=== PATIENT | female | born 1980 | race Caucasian/White ===

== ENCOUNTER 2017-02-03 18:02 | Inpatient (IN) | payer OTHER ==
[~2017-02-03] VITALS: Ht 167.6 cm; Wt 64.3 kg
[2017-02-03] MEDS ORDERED: VIVI380I IM (18:12)
[2017-02-03] MEDS ORDERED: CLON-412 PO (18:12)
[2017-02-03] MEDS ORDERED: GABA-283 PO (18:12)
[2017-02-03 19:01] LABS: MEAN CORPUSCULAR HEMOGLOBIN 31.7 pg (27.0-33.0); MEAN CORPUSCULAR HGB CONC 34.6 g/dl (32.0-36.5); MEAN CORPUSCULAR VOLUME 91.6 fl (80.0-96.0); RED CELL DISTRIBUTION WIDTH 13.1 % (11.5-14.5); WHITE BLOOD COUNT 10.7 K/mm3 (4.0-10.0)
[2017-02-03 19:18] LABS: CONTROL LINE HCG INT CTR LINE PRESENT
[2017-02-03 19:25] LABS: METHADONE URINE NEGATIVE (NEGATIVE)
[2017-02-03 19:35] LABS: ALBUMIN 3.9 GM/DL (3.2-5.2); ALBUMIN/GLOBULIN RATIO 1.26 (1.00-1.93); ALKALINE PHOSPHATASE 70 U/L (45-117); ALT/SGPT 18 U/L (12-78); ANION GAP 7 MEQ/L (8-16); AST/SGOT 9 U/L (15-37); BILIRUBIN,DIRECT 0.1 MG/DL (0.0-0.2); BILIRUBIN,TOTAL 0.3 MG/DL (0.2-1.0); BLOOD UREA NITROGEN 9 MG/DL (7-18); CARBON DIOXIDE LEVEL 26 MEQ/L (21-32); CHLORIDE LEVEL 107 MEQ/L (98-107); CREATININE FOR GFR 0.82 MG/DL (0.55-1.02); GLOMERULAR FILTRATION RATE > 60.0 (>60); GLUCOSE, FASTING 95 MG/DL (70-105); POTASSIUM SERUM 4.3 MEQ/L (3.5-5.1); SODIUM LEVEL 140 MEQ/L (136-145)
[2017-02-03] MEDS ORDERED: GABA-282 PO (19:47)
[2017-02-03] MEDS ORDERED: traZODone 50 MG TAB PO PRN (20:15)
[2017-02-03] MEDS ORDERED: MOM 30ML SUSPENSION UDC PO PRN (20:15)
[2017-02-03] MEDS ORDERED: MAALOX 30 ML SUSP *UDC PO PRN (20:15)
[2017-02-03] MEDS ORDERED: ALPRAZolam 0.5 MG TAB PO ONE (20:30)
[2017-02-03 21:44] VITALS: BP 109/68
[2017-02-04 06:17] VITALS: BP 116/59
[2017-02-04] MEDS: VENLAFAXINE **XR** 37.5 MG CAPSULE PO SCH (09:24)
[2017-02-04] MEDS: NICOTINE 21MG/24HR 1 EA TRANSDERMAL TD SCH (09:25)
[2017-02-04 15:45] VITALS: BP 186/96
[2017-02-04 16:00] VITALS: BP 135/94
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
[2017-02-04] MEDS: ACETAMINOPHEN TAB 650MG DOSE (2X325MG) PO PRN (17:37)
[2017-02-04 18:00] VITALS: BP 132/79
[2017-02-04] MEDS: OLANZapine ORAL DISINTEGRATING TAB 5MG PO PRN ×2 (19:46→23:45)
[2017-02-04] MEDS: hydrOXYzine 50 MG TAB PO PRN (23:52)
[2017-02-05] MEDS: ACETAMINOPHEN TAB 650MG DOSE (2X325MG) PO PRN (06:30)
[2017-02-05 06:42] VITALS: BP 132/86
[2017-02-05] MEDS: VENLAFAXINE **XR** 37.5 MG CAPSULE PO SCH (09:10)
[2017-02-05] MEDS: NICOTINE 21MG/24HR 1 EA TRANSDERMAL TD SCH (09:11)
[2017-02-05 18:00] VITALS: BP 122/82
[2017-02-05] MEDS: hydrOXYzine 50 MG TAB PO PRN (22:03)
[2017-02-06 06:46] VITALS: BP 111/70
[2017-02-06] MEDS: OLANZapine ORAL DISINTEGRATING TAB 5MG PO PRN (08:39)
[2017-02-06] MEDS: hydrOXYzine 50 MG TAB PO PRN (08:39)
[2017-02-06] MEDS: VENLAFAXINE **XR** 37.5 MG CAPSULE PO SCH (09:04)
[2017-02-06] MEDS: NICOTINE 21MG/24HR 1 EA TRANSDERMAL TD SCH (09:05)
[2017-02-06] MEDS: busPIRone 10 MG TAB PO SCH ×2 (11:57→21:06)
[2017-02-06] MEDS ORDERED: VENLAFAXINE **XR** 37.5 MG CAPSULE PO ONE (12:00)
--- NOTE | 2017-02-06 13:33 | IPN ---
DATE OF SERVICE: 02/05/2017 The patient today states "I am not anxious at all today, and I slept good." She says she is not depressed. MENTAL STATUS EXAMINATION: She is alert and oriented times three. Hygiene appears to be intact. She is verbally spontaneous. There is no formal thought disorder noted. Psychomotor activity is good. Affect full range and appropriate. She is not psychotic. She is denying suicidal or homicidal ideations. Concentration fair. Memory intact. Insight and judgment is fair. DIAGNOSES: 1. Major depressive disorder, substance-induced. 2. Mood disorder. 3. Opioid use disorder. 4. Cannabis use disorder. TREATMENT PLAN: At this point, we will continue to monitor the patient for continued elevation and stabilization of her mood and for continued resolution of suicidal ideations. We will continue to titrate the medications as indicated.
[2017-02-06] MEDS: ACETAMINOPHEN TAB 650MG DOSE (2X325MG) PO PRN (17:27)
[2017-02-06 18:00] VITALS: BP 137/82
--- NOTE | 2017-02-06 20:56 | HPE ---
DATE OF ADMISSION: 02/03/2017 HISTORY OF PRESENT ILLNESS: Please refer to psychiatric history and evaluation for further details on this admission. This examination and history is intended for medical issues, which may need treatment, followup or consultation on this 36-year-old female. PRIMARY CARE PROVIDER: Dr. Mitchell in [place]. ALLERGIES: CODEINE. SOCIAL HISTORY: She is . EtOH rarely. Smokes one pack of cigarettes per day. Recreational drug use: She abused Suboxone, she was off it since October and then relapsed, none since November. PAST MEDICAL HISTORY: Negative. PAST SURGICAL HISTORY: Four sections, tubal ligation, repair of fractured right ankle, plate removal from right ankle. HOME MEDICATIONS: None. LABORATORY STUDIES: WBC 10.7, hemoglobin 13.6, hematocrit 39.2. Platelets 229. Electrolytes were normal. BUN was 9, creatinine 0.82. Urine was positive for benzodiazepine. REVIEW OF SYSTEMS: Ten systems review was done and was unremarkable. The patient had no complaints. PHYSICAL EXAMINATION: GENERAL: Vital signs stable. The patient is alert and oriented times three. Height 66 inches, weight 68.2 kg. Body Mass Index (BMI) 24.3. Blood pressure 124/80, pulse 88, respirations 10, temperature 97.6. HEENT: Pupils are equal and reactive to light. Extraocular muscles intact. Sclerae clear. Conjunctivae normal. No facial asymmetry. Pharynx, gums and tongue pink and moist. Tongue is midline. NECK: Supple without lymphadenopathy, thyromegaly or goiter. CHEST: Clear to auscultation without wheeze or retraction. HEART: Regular. ABDOMEN: Benign. Bowel sounds positive. GENITOURINARY/RECTAL: Not done. EXTREMITIES: Show equal strength and full range of motion. No cyanosis, clubbing or edema. Peripheral pulses equal and palpable bilaterally. SKIN: Warm and dry. Left arm has three superficial lacerations approximately four days old, healing well. No redness or drainage. IMPRESSION/PLAN: 1. Psychiatric plan per psychiatry. 2. No acute medical issues.
[2017-02-06] MEDS ORDERED: busPIRone 10 MG TAB PO SCH (21:00)
--- NOTE | 2017-02-07 04:06 | IPN ---
DATE OF SERVICE: 02/06/2017 The patient states "today I'm feeling very anxious, I've been trying to shake it." She denies any new stressors. She said that when she gets very anxious it causes her to throw up and she threw up right after her morning Effexor. She does not think that she is having withdrawal from any drugs. She says that "I've not had too many drugs, maybe just a couple of Klonopin." I suspect that the patient may be minimizing at this point. MENTAL STATUS EXAMINATION: She is alert and oriented times three. Eye contact is fair. Psychomotor activity is increased due to anxiety. There is no formal thought disorder noted. Mood is anxious. Affect is full range and appropriate. She is not psychotic, suicidal, homicidal. Concentration is fair. Memory is intact. Insight and judgment is fair. DIAGNOSES: 1. Major depressive disorder. 2. Substance-induced mood disorder. 3. Opioid dependence. 4. Cannabis use disorder. TREATMENT PLAN: At this point, we will further observe and evaluate this patient for further stabilization. She was complaining of increased anxiety. Since she threw up right after her morning Effexor, I will give her another 37.5 mg of Effexor and tomorrow we will increase the Effexor to 75 mg. We will start her on BuSpar 10 mg twice a day to see if this helps.
[2017-02-07 06:38] VITALS: BP 127/59
[2017-02-07] MEDS: NICOTINE 21MG/24HR 1 EA TRANSDERMAL TD SCH (08:42)
[2017-02-07] MEDS: VENLAFAXINE **XR** 75MG CAPSULE PO SCH (08:42)
[2017-02-07] MEDS: busPIRone 10 MG TAB PO SCH ×2 (08:42→20:28)
[2017-02-07] MEDS: ACETAMINOPHEN TAB 650MG DOSE (2X325MG) PO PRN ×2 (13:10→20:28)
[2017-02-07 18:00] VITALS: BP 127/88
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
[2017-02-07] MEDS: hydrOXYzine 50 MG TAB PO PRN (22:33)
[2017-02-08 06:26] VITALS: BP 126/69
[2017-02-08] MEDS: NICOTINE 21MG/24HR 1 EA TRANSDERMAL TD SCH (08:45)
[2017-02-08] MEDS: VENLAFAXINE **XR** 75MG CAPSULE PO SCH (08:45)
[2017-02-08] MEDS: busPIRone 10 MG TAB PO SCH (08:45)
[2017-02-08] MEDS: ACETAMINOPHEN TAB 650MG DOSE (2X325MG) PO PRN (10:29)
[2017-02-08] MEDS: hydrOXYzine 50 MG TAB PO PRN (10:30)
[2017-02-08] MEDS ORDERED: VENL75CA2 PO (13:36)
[2017-02-08] MEDS ORDERED: BUSP10TA PO (13:36)
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
== END 2017-02-08 16:15 | disposition home or self-care (01) | DRG 751 ==
LOC: M ED 18:02 → M ED INP 20:01 → M PSY 21:40 → UNDODISIN 02-04 15:50
PROVIDERS: ADMIT Psychiatry & Neurology Psychiatry; ATTEND Psychiatry & Neurology Psychiatry
DX: F33.0 Major depressive disorder, recurrent, mild (principal); R45.851 Suicidal ideations; F41.0 Panic disorder [episodic paroxysmal anxiety]; F40.10 Social phobia, unspecified; F41.1 Generalized anxiety disorder; F12.10 Cannabis abuse, uncomplicated; F11.10 Opioid abuse, uncomplicated; Z79.899 Other long term (current) drug therapy; Z88.5 Allergy status to narcotic agent; F17.210 Nicotine dependence, cigarettes, uncomplicated; Z98.51 Tubal ligation status